=== PATIENT | male | born 1975 | race Caucasian/White ===

== ENCOUNTER 2023-06-16 15:22 | Outpatient (OUT) | payer OTHER, SELFPAY ==
[2023-06-16 16:04] LABS: Alanine Aminotransferase 30 U/L (16-63); Albumin Globulin Ratio 1.2; Albumin Level 3.7 g/dL (3.4-5.0); Alkaline Phosphatase 78 U/L (46-116); Anion Gap 7.7; Aspartate Amino Transferase 15 U/L (15-37); BUN Creatinine Ratio 9.4; Bilirubin Direct 0.1 mg/dL (0.0-0.2); Bilirubin Total 0.7 mg/dL (0.2-1.0); Calcium 8.4 mg/dL (8.5-10.1); Carbon Dioxide 29.2 mmol/L (21.0-32.0); Chloride 106 mmol/L (98-107); Estimated GFR (African America >60 (>=60); Estimated GFR (Non-African Ame 55 (>=60); Globulin 3.1 g/dL; Glucose 91 mg/dL (74-106); Potassium 3.9 mmol/L (3.5-5.1); Sodium 139 mmol/L (136-145); Total Protein 6.8 g/dL (6.4-8.2)
== END 2023-06-16 15:23 | disposition home or self-care (01) ==
LOC: LAB 15:25
PROVIDERS: PCP Nurse Practitioner; Visit Provider Psychiatry & Neurology Neurology
DX: G43.011 Migraine without aura, intractable, with status migrainosus (principal); G62.9 Polyneuropathy, unspecified
CPT/HCPCS: 36415; 80053; 82248

== ENCOUNTER 2023-10-20 10:14 | Outpatient (OUT) | payer OTHER, SELFPAY | END 2023-10-20 10:15 | disposition home or self-care (01) | LOC: LAB 10:15 | PROVIDERS: PCP Nurse Practitioner; Visit Provider Nurse Practitioner | DX: E55.9 Vitamin D deficiency, unspecified (principal) | CPT/HCPCS: 36415; 82306 ==

== ENCOUNTER 2023-10-25 23:04 | Outpatient (OUT) | payer OTHER, SELFPAY ==
--- NOTE | 2023-10-25 | XR_ITS ---
The [address] [address] Patient Name: JOVANA CARRASQUILLO MRN: [id number] date: 1975 Sex: M Assigned Patient Location: [facility] Current Patient Location: Accession/Order Number: [id number] Exam Date: 10/25/2023 23:08 Report Date: 10/26/2023 06:29 At the request of: YAMILETH MCCRACKEN Procedure: XR foot RT min 3V PROCEDURE: XR foot RT min 3V HISTORY: lateral right foot pain since injury one month ago COMPARISON: None. FINDINGS: BONES:Moderate narrowing of the joint space of the first metatarsophalangeal joint. No fracture, dislocation, bone lesion. SOFT TISSUES:No visible soft tissue swelling. EFFUSION:None visible. OTHER: Negative. XR/XR foot RT min 3V IMPRESSION: 1. No acute abnormality findings to account for patient's symptoms. 2. 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 Electronically authenticated by: LEO BOND Date: 10/26/2023 06:29
== END 2023-10-25 23:05 | disposition home or self-care (01) ==
PROVIDERS: PCP Nurse Practitioner; Visit Provider Nurse Practitioner
DX: M79.671 Pain in right foot (principal)
CPT/HCPCS: 73630

== ENCOUNTER 2024-01-17 11:54 | Outpatient (OUT) | payer OTHER, SELFPAY ==
[2024-01-17 17:22] LABS: Prostate Specific Antigen Dx 2.66 ng/mL (<=4.00)
== END 2024-01-17 11:55 | disposition home or self-care (01) ==
LOC: LAB 01-19 11:54
PROVIDERS: PCP Nurse Practitioner; Visit Provider Urology
DX: R97.20 Elevated prostate specific antigen [PSA] (principal)
CPT/HCPCS: 36415; 84153

== ENCOUNTER 2024-04-01 16:37 | Outpatient (OUT) | payer OTHER, SELFPAY ==
[2024-04-01 16:56] LABS: Bilirubin Urine NEGATIVE (NEGATIVE); Blood Urine NEGATIVE (NEGATIVE); Clarity Urine CLEAR (CLEAR); Color Urine LT. YELLOW (YELLOW); Glucose Urine UA NEGATIVE (NEGATIVE); Ketones Urine NEGATIVE (NEGATIVE); Leukocyte Esterase Urine NEGATIVE (NEGATIVE); Nitrite Urine NEGATIVE (NEGATIVE); Protein Urine NEGATIVE (NEG/TRACE); Specific Gravity Urine 1.015 (1.005-1.025); Urobilinogen Urine 0.2 EU/dL (0.2-1.0)
[2024-04-01 16:58] LABS: Urine Microscopic Indicated NO
[2024-04-01 17:05] LABS: Basophils Absolute Auto 0.1 10^3/uL (0.0-0.1); Basophils Percent Auto 1.2 % (0.2-2.0); Eosinophils Absolute Auto 0.2 10^3/uL (0.0-0.7); Eosinophils Percent Auto 3.1 % (0.9-7.0); Hematocrit 47.9 % (42.0-54.0); Immature Granulocytes Abs Auto 0.03 10^3/uL (0.00-0.03); Immature Granulocytes Pct Auto 0.6 % (0.0-0.5); Lymphocytes Absolute Auto 1.7 10^3/uL (1.2-3.8); Lymphocytes Percent Auto 33.3 % (20.5-60.0); Mean Corpuscular HGB Conc 33.4 g/dL (29.9-35.2); Mean Corpuscular Volume 89.9 fL (80.0-94.0); Mean Platelet Volume 11.1 fL (9.5-13.5); Monocytes Absolute Auto 0.4 10^3/uL (0.3-0.8); Monocytes Percent Auto 7.5 % (1.7-12.0); Neutrophils Absolute Auto 2.8 10^3/uL (1.4-6.5); Neutrophils Percent Auto 54.3 % (43.0-75.0); Platelet Count 199 10^3/uL (150-450); Red Blood Count 5.33 10^6/uL (4.70-6.10); Red Cell Distribution Width 12.1 % (11.0-15.0); White Blood Count 5.2 10^3/uL (4.0-11.0)
[2024-04-01 17:33] LABS: Alanine Aminotransferase 21 U/L (16-63); Albumin Globulin Ratio 1.3; Alkaline Phosphatase 83 U/L (46-116); Anion Gap 8.7; Aspartate Amino Transferase 12 U/L (15-37); BUN Creatinine Ratio 8.8; Bilirubin Total 0.9 mg/dL (0.2-1.0); Carbon Dioxide 30.1 mmol/L (21.0-32.0); Chloride 106 mmol/L (98-107); Chol HDL Ratio 2.7; Cholesterol 199 mg/dL (<=200); Estimated GFR (African America >60 (>=60); Estimated GFR (Non-African Ame 55 (>=60); Glucose 102 mg/dL (74-106); HDL Cholesterol 75 mg/dL (40-60); Potassium 3.8 mmol/L (3.5-5.1); Sodium 141 mmol/L (136-145); Triglycerides 56 mg/dL (<=150); VLDL CHOLESTEROL 11.2 mg/dL
== END 2024-04-01 16:38 | disposition home or self-care (01) ==
LOC: LAB 16:37
PROVIDERS: PCP Nurse Practitioner; Visit Provider Nurse Practitioner
DX: Z00.00 Encounter for general adult medical examination without abnormal findings (principal); E55.9 Vitamin D deficiency, unspecified
CPT/HCPCS: 36415; 80053; 80061; 81003; 82306; 85025

== ENCOUNTER 2024-09-11 15:32 | Outpatient (OUT) | payer OTHER, SELFPAY ==
[2024-09-11 15:57] LABS: Anion Gap 12.3; BUN Creatinine Ratio 7.4; Calcium 8.7 mg/dL (8.5-10.1); Carbon Dioxide 29.2 mmol/L (21.0-32.0); Chloride 105 mmol/L (98-107); Estimated GFR (African America >60 (>=60 mL/min/1.73m^2); Estimated GFR (Non-African Ame 55 (>=60 mL/min/1.73m^2); Glucose 123 mg/dL (74-106); Potassium 3.5 mmol/L (3.5-5.1); Sodium 143 mmol/L (136-145)
== END 2024-09-11 15:33 | disposition home or self-care (01) ==
LOC: LAB 15:32
PROVIDERS: PCP Nurse Practitioner; Visit Provider Nurse Practitioner
DX: R79.89 Other specified abnormal findings of blood chemistry (principal)
CPT/HCPCS: 36415; 80048

== ENCOUNTER 2025-07-28 20:20 | Emergency (ER) | payer OTHER, SELFPAY ==
--- OUTSIDE RECORDS SUMMARY | 2025-05-02 08:07 | XMS_ITS | Continuity of Care Document ---
Author Organization [facility] Address [address] [place] [address] Phone Care Team Providers Care Braid Maker Name Role Phone Clint Kong DMD Unavailable Unavailable Allergies, Adverse Reactions, Alerts Substance Reaction Status Criticality latex Active No Information Medications Medication Instructions Dosage Effective Dates (start - stop) Status Comments Topamax 25 mg tablet take 1 tablet by or al route every day 25 MG - Active acetazolamide 250 mg tablet take 1 tablet by oral route 2 times every day 250 MG - Active Tylenol 325 mg tablet take 2 tablet by o ral route every 6 hours as needed 650 MG - Active Vitamin D3 10 mcg (400 unit) capsule - Active ibuprofen 200 mg capsule take 1 capsule by oral route every 6 hours as needed 200 MG - Active Problems Condition Type Effective Dates (start - stop) Clini samantha Status Comments No Known Problems Procedures Procedure Date Bitewings Four Films Prophylaxis Adult Periodic Oral Eval Estab Patient 2024 [employer] [facility] [employer] [facility] [place] Dis Apr Oral Hygiene Instruction Low Risk Moderate Risk Bitewings Four Films Prophylaxis Adult Periodic Oral Eval Estab Patient 2023 Oral Hygiene Instruction Prophylaxis Adult [employer] [facility] [employer] [place] Dis Sep Oral Hygiene Instruction Post Op Visit Dental Inhalation Of Nitrous Oxide Extract; Erupted Th/exposted Rt 023 [employer] [place] Dis Apr Post Op Visit Dental Bitewig-single Film Oral Hygiene Instruction Limited Oral Eval Prophylaxis Adult Oral Hygiene Instruction Oral Hygiene Instruction Resin Composite 3s; Posterior Comp Oral Eval New/estab Patient 2022 Intraoral-complete Series (bw) Panoramic Film Advance Directives Directive Yes / No Effective Date File Name No Information Encounters Encounter Description Practice Location Reason(s) For Visit Diagnoses Date Provider Providers Copied on Encounter [facility], [address] [place] [address], [id number], [place] tel:[phone] [facility] [place] (chief complaint) Body mass index [BMI] 22.0-22.9, adultEncounter for screening for dental disorders Patoefra VERGARA Clint. [address] [place] [address], [id number] , [place]. tel:[phone] [facility], [address] [place] [address], [id number], [place] tel:[phone] [facility] [place] (chief complaint) Encounter for screening for dental disorders Patoefra VERGARA Clint. [address] [place], [place], [id number] , [place]. tel:[phone] [facility], [address] [place] [address], [id number], [place] tel:[phone] [facility] [place] (chief complaint) Body mass index [BMI] 24.0-24.9, adultEncounter for screening for dental disorders Mari Stone. [address] [place] [address], [id number], [place]. tel:[phone] [facility], [address] [place] [address], [id number], [place] tel:[phone] Dental Clinic Post op (chief complaint) Encounter for screening for dental disorders Patoefra URSULA Jaramillo. [address] [place] [address], [id number] , [place]. tel:[phone] [facility], [address] [place], [place], [id number], [place] tel:[phone] Dental Clinic Ext (chief complaint) Encounter for screening for dental disorders [facility]. [address] [place], [address], [place]. tel: [phone] [facility], [address] [place], [place], [id number], [place] tel:[phone] Dental Clinic ext/ consult? (chief complaint) Encounter for screening for dental disorders [facility]. [address] [place] [address], [id number], [place]. tel: [phone] [facility], [address] [place] [address], [id number], [place] tel:[phone] Dental Clinic Dental limited (chief complaint) Encounter for screening for dental disorders Luann Jaramillo. [address] [place], [place], [id number] , [place]. tel: [phone] [facility], [address] [place] [address], [id number], [place] tel:[phone] [facility] [place] (chief complaint) Encounter for screening for dental disorders [facility]. [address] [place] [address], [id number], [place]. tel: [phone] [facility], [address] [place] [address], [id number], [place] tel:[phone] Dental Clinic GAGANDEEP (chief complaint) Encounter for screening for dental disorders [facility]. [address] [place] [address], [id number], [place]. tel:[phone] [facility], [address] [place] [address], [id number], [place] tel:[phone] Dental Clinic dn (chief complaint) Encounter for screening for dental disorders [facility]. [address] [place] [address], [id number], [place]. tel:[phone] Family History Family Member Type Diagnosis Age At Onset No Information Payers Payer name Insurance type Covered democrat ID Dyan falk(juan ramon) Ashleigh [employer] [facility] [id number] Medicaid Wrap - [facility] [id number] Social History Type Description Quantity Date Captured Comments Alcohol Use Details Unknown Caffeine Use Details Unknown Tobacco Use Status Current non-smoker Smoking Status Never smoker Sex Male Sexual Orientation Straight or heterosexual Gender Identity Male Vital Signs Date / Time: Height Weight BMI Pulse Rate Blood Pressure Temperature Respiratory Rate Body Surface Area Head Circumference Head Circ. Percentile Wt./Keshawn. Percentile BMI percentile Pulse Ox Inhaled Ox 1:19 PM 74.00 in 79.379 kg (175.00 lbs) 22.4 7 kg/m eter (2) 67 /min 140/83 mm[Hg] 98.10 F 2.04 meter(2) Chief Complaint And Reason For Visit From encounter dated '05/02/2025 13:07'. PA (chief complaint). Description: PA Reason For Referral Reason For Referral No Information Plan Of Treatment Date Type Action Status Goal FIT-DNA. Due on due Goal PRAPARE ASSESSMENT. Due on A due Goal Lipid panel. Due on 025 due Goal Zoster vaccine (1st). Due on due Goal Depression screening. Due on due Goal Hepatitis C screening. Due o n due Goal Unhealthy drug use screening . Due on due Goal FOBT. Due on due Goal Tdap. Due on due Goal CT-Colonography. Due on due Goal Colonoscopy. Due on due Goal Influenza vaccine. Due on due Goal FIT. Due on due Goal Tdap Vaccine. Due on 2024 due Goal Dietary manageme nt education, guidance, and counseling completed Goal Tdap Vaccine. Due on 2023 due Goal Tdap. Due on due Goal Zoster vaccine (). Due on due Goal CT-Colonography. Due on due Goal Depression screening. Due on due Goal Colonoscopy. Due on due Goal FOBT. Due on due Goal Unhealthy drug use screening . Due on due Goal Influenza vaccine. Due on due Goal FIT. Due on due Goal PRAPARE ASSESSMENT. Due on A due Goal FIT-DNA. Due on due Goal Lipid panel. Due on due Goal Hepatitis C screening. Due o n due Goal Hep A. Due on du e Goal Depression screening. Due on due Goal FIT-DNA. Due on due Goal PRAPARE ASSESSMENT. Due on due Goal Colonoscopy. Due on due Goal CT-Colonography. Due on due Goal FOBT. Due on due Goal Influenza vaccine. Due on due Goal Lipid panel. Due on 024 due Goal Tdap. Due on due Goal Unhealthy drug use screening . Due on due Goal Tdap Vaccine. Due on 2023 due Goal Zoster vaccine (). Due on due Goal FIT. Due on due Goal Hepatitis C screening. Due o n due Goal Dietary manageme nt education, guidance, and counseling completed Goal Depression screening. Due on due Goal Zoster vaccine (). Due on due Goal PRAPARE ASSESSMENT. Due on S due Goal Tdap. Due on due Goal Tdap Vaccine. Due on 2022 due Goal Colonoscopy. Due on due Goal Lipid panel. Due on due Goal FOBT. Due on due Goal Influenza vaccine. Due on p due Goal Tdap. Due on due Goal Depression screening. Due on due Goal Lipid panel. Due on due Goal FOBT. Due on due Goal PRAPARE ASSESSMENT. Due on ep due Goal Tdap Vaccine. Due on 2022 due Goal Colonoscopy. Due on due Goal Influenza vaccine. Due on due Goal Zoster vaccine (). Due on due Goal Zoster vaccine (). Due on due Goal Influenza vaccine. Due on due Goal Depression screening. Due on due Goal Colonoscopy. Due on due Goal FOBT. Due on due Goal Tdap. Due on due Goal Tdap Vaccine. Due on 2022 due Goal Lipid panel. Due on due Goal PRAPARE ASSESSMENT. Due on due Goal Hep A. Due on du e Goal Zoster vaccine (). Due on due Goal PRAPARE ASSESSMENT. Due on due Goal Tdap Vaccine. Due on 2022 due Goal Lipid panel. Due on due Goal Depression screening. Due on due Goal Tdap. Due on due Goal Colonoscopy. Due on due Goal FOBT. Due on due Goal Influenza vaccine. Due on due Goal Zoster vaccine (). Due on due Goal PRAPARE ASSESSMENT. Due on due Goal Colonoscopy. Due on due Goal Tdap Vaccine. Due on 2022 due Goal Tdap. Due on due Goal FOBT. Due on due Goal Lipid panel. Due on due Goal Depression screening. Due on due Goal Influenza vaccine. Due on due Goal Hep A. Due on du e Goal FOBT. Due on due Goal Influenza vaccine. Due on due Goal PRAPARE ASSESSMENT. Due on due Goal Colonoscopy. Due on due Goal Zoster vaccine (). Due on due Goal Tdap Vaccine. Due on 2022 due Goal Tdap. Due on due Goal Depression screening. Due on due Goal Lipid panel. Due on due Goal Lipid panel. Due on due Goal Depression screening. Due on due Goal Tdap. Due on due Goal Tdap Vaccine. Due on 2022 due Goal Zoster vaccine (). Due on due Goal Colonoscopy. Due on due Goal PRAPARE ASSESSMENT. Due on due Goal Influenza vaccine. Due on due Goal FOBT. Due on due Appointment Hung Ca BOOKED History Of Present Illness Encounter Date Complaint History Of Prese nt Illness JACOBO CENTENO JACOBO CENTENO JACOBO CENTENO Post op Post op Ext ext/ consult? Dental limited JACOBO CENTENO GAGNADEEP GAGANDEEP dn dn Functional Status Date Functional Assessmen t No Information Instructions Date Instruction Additional Infor mation Giving encouragement to exercise Related to Body mass index [BMI] 22.0-22.9, adult Dietary management e ducation, guidance, and counseling Related to Body mass index [BMI] 22.0-22.9, adult Giving encouragement to exercise Related to Body mass index [BMI] 24.0-24.9, adult Dietary management e ducation, guidance, and counseling Related to Body mass index [BMI] 24.0-24.9, adult Assessments Type Assessment Date assessment Body mass index [BMI] 22.0-22.9, adult assessment Encounter for screening for dent al disorders Patient Care Teams Name Effective Dates (start - stop) Status Members No Information
[2025-07-28] VITALS (14 sets, daily range): BP systolic 100–132; BP diastolic 64–79; PULSE 61–85; TEMP 36.3; O2SAT 99–100; BMI 21.8
--- OUTSIDE RECORDS SUMMARY | 2025-07-28 15:10 | XMS_ITS | Continuity of Care Document ---
Author Organization [facility] Address [address] [place] [address] Phone Care Team Providers Care Magazine Writer Name Role Phone Pamela Norris FIGURINE MAKER-C Primary Care Provider [phone] Pamela Norris NP-C Attending Provider Care Teams Patient Care Team Team Status: Active Member Role/Relationship Status Dates Pamela Norris NP-C Primary Care Provider Active Visit Care Team Team Status: Inactive Member Role/Relationship Status Dates Pamela Norris FIGURINE MAKER-C Primary Care Provider Active Start: June 23, 2025 End: June 23, 2025Pamela Norris NP-CAttending ProviderActiveStart: June 23, 2025 End: June 23, 2025 Patient Care Team Team Status: Inactive Member Role/Relationship Status Dates Pamela Norris FIGURINE MAKER-C Primary Care Provider Active Start: July 28, 2025 End: July 28, 2025AMISH AminCAttennguyen ProviderActiveStart: July 28, 2025 End: July 28, 2025 Chief Complaint and Reason for Visit Chief Complaint Admit Date 6M June 23, 2025 5:50pm large splinter in right hand July 6:49pm Reason for Visit Admit Date Migraine aura without headache June 23, 2025 5:50pm Vitamin D deficiency June 23 5:50pm Wellness examination June 23 5:50pm Foreign body (FB) in soft tissue Novembe r 2024 6:49pm Vasovagal episode July 28, 2025 6 :49pm Allergies, Adverse Reactions, Alerts Allergen Type Severity Reaction Last Updated Verified Status alfuzosin Allergy Mild Dizziness May 8:23am Yes Active latex Allergy Mild Rash May 8:23am Yes Active grass pollen Allergy Unknown Unknown Reaction May 10, 2021 8:39am Yes Active mold Allergy Unknown Unknown Reaction April 252020 8:39am Yes Active ragweed pollen Allergy Unknown Unknown Reaction Augu st 2020 8:39am Yes Active levonorgestrel-eth inyl estrad Allergy Unknown unknown June 19, 2025 8:23am No Active molds,ragweed,gras s Allergy Unknown Cough June 19, 2025 8:23am No Active Social History Smoking Status Status Start Date End Date Date of Observa tion Never smoked tobacco (finding) April 27, 2023 6:02pm Observation Status Observation Response Date of Response Legal Sex Male (finding) Sex Assigned At BirthMaleApril 1974 Family History Relationship Condition Age at Onset Recorded Date/T rusty father Malignant neoplasm metastatic to lung Unk nown Malignant neoplasm of colonUnknownNeuroendocrine carcinomaUnknownsisterSeizure UnknownfatherMalignant neoplasmUnknownDeceasedUnknown Problems Active Problems Problem Diagnosis/Recorded Date Onset Date Status C omments Fluttering sensation of heart June 19, 2025 8:37am Unknown Active Trigger point of neckSept2024 8:41amUnknownActiveElevated PSA June 19, 2025 8:37amUnknownActiveLower extremity edemaSeptember 2024 8:38amUnknownActiveInsomniaSept2024 8:37amUnknownActiveIIH (idiopathic intracranial hypertension)June 19, 2025 8:37amUnknownActive Vision changesSept2024 8:41amUnknownActiveForeign body (FB) in soft tissueJuly 28, 2025 7:50pmUnknownActiveReactive airway diseaseSept2024 8:38amUnknownActiveMigraine aura without headacheSept2024 8:38amUnknownActiveVitamin deficiencySept2024 8:41amUnknownActive Benign prostatic hyperplasia with urinary obstructionSept2024 8:37am UnknownActiveWellness examinationSeptember 2024 8:41amUnknownActive RhinitisSeptember 2024 8:38amUnknownActiveElevated serum creatinine June 19, 2025 8:37amUnknownActivePolyneuropathySeptember 2024 8:38amUnknownActiveRight foot painSeptember 2024 8:38amUnknownActive Cervical paraspinal muscle spasmSeptember 2024 8:37amUnknownActiveSore in noseSeptember 2024 8:38amUnknownActiveVasovagal episodeNov2024 7:50pmUnknownActivePapilledemaSeptember 2024 8:38amUnknownActiveVitamin D deficiencySept2024 8:41amUnknownActiveInactive/Resolved Problems Problem Diagnosis/Recorded Date Onset Date Status C omments Family history of colon cancer requiring screening colonoscopy May 10, 2021 10:02am Unknown Resolved Proble m List clean-up per request of Phys. EHR Cmte Medications Medication Status Dose Units Route Directions Qty Days Refills S tart Date Stop Date End Date Reason(s) Instructions Adherence Acetazolamide 250 mg tablet Discontinued 250 MG PO Twice daily May 09, 2021 11:00pmSept2024 4:04pm1 tablet in AM; 1/2 tablet in PMMultivitamin OsktlrAgibxa0ELFKZOmcrdEvhwyn 2020 11:00pmUnknown Cetirizine 10 mg rrztosJajzxx03QUMHIgpeq as neededJune 19, 2025 11:00pm UnknownThiamine Hcl (Vitamin B1) 100 mg bmiggiMskszc153XPWIZyfwmQnampdyac 25th, 2025 11:00pmUnknownTopiramate 25 mg ersmndDaqahf59GWNQBsyssnhcj 25th, 2025 11:00pmUnknownMagnesium Oxide 400 mg (241.3 mg magnesium) iglphcAljlpx664IPXG DailySept2024 11:00pmUnknownFluticasone Propionate (Flonase Allergy Relief) 50 mcg/actuation spray,aadjlmrcwoFqddkh2KYTIYSRUHPMRWWHUmyumZrzudaool 25th, 2025 11:00pmadminister into each nostrilUnknownCholecalciferol (Vitamin D3) 50 mcg (2,000 unit) omxsevHinfpofxqaxj5460KIQSXXUtcfeXsaupoyqx 25th, 2025 11:00pmSept2024 5:31pmAscorbic Acid (Vitamin C) 500 mg capsuleActive MG2024 11:00pmUnknownRimegepant (Nurtec Odt) 75 mg tablet,qxbjshtuabvdvgHtemyd92NPDWFzld as neededJune 19, 2025 11:00pm UnknownCholecalciferol (Vitamin D3) 50 mcg (2,000 unit) ilrrwqHninoo4012TNLIJT Hordt075OjwrgyitaJune 23, 2025 5:30pmVitamin D deficiency Vitamin D deficiency, unspecifiedUnknown Immunizations Immunization Event Date Not Given Reason Dose Number Crop Quantitative Geneticist Lot Number Reason(s) Given Vaccine Information Statement (VIS) Detail Administration Location COVID-19 [facility] blinkboxdeangelo (Secure[facility]) December [facility] 08, 2021 Vital Signs Vital Reading Result Reference Range Collection Date/Time Height 74 [in_i] June 23, 2025 4:30qyKcwklq03.11 kgSept2024 4:55pmBody Mhgkduahphb86.3 [degF]97.6-99.0pt2024 4:55pmHeart Rate61 /min 60-100June 23, 2025 4:55pmOxygen saturation by Pulse vhlgyaes92 %95-100 June 23, 2025 4:55pmBP Ywhedvqd372 mm[Hg]100-140Sept2024 4:55pmBP Ttdpcxsvm22 mm[Hg]60-100Sept2024 4:55pmBMI (Body Mass Index)21.8 kg/o4FvjfdijiiJune 23, 2025 4:11yzNghaht00 [in_i]July 28, 2025 6:05fdVsmmdz96.28 kgNov2024 6:55pmBody Rqrtokexlvg91.1 [degF] 97.6-99.0July 28, 2025 6:55pmHeart Rate78 /frf00-639CtqpyggfJuly 28, 2025 6:55pmRespiratory rate18 /ffb99-80BfsohnujJuly 28, 2025 6:55pmOxygen saturation by Pulse %95-100July 28, 2025 6:55pmBP Kxhbyxqg44 mm[Hg]100-140 July 28, 2025 7:38pmBP Mkufmxfxh24 mm[Hg]60-100July 28, 2025 7:38pmBMI (Body Mass Index)21.9 kg/n7RvpiqlciJuly 28, 2025 6:55pm Advance Directives Advance Directive Response Recorded Date/ Time Advance Directives No January 19 9:30am Insurance Providers Guarantor Ashleigh Roland Address [address] [place] [address] [address] [facility] [address]Essdwfj Info.Home Phone: Coverage Status Update:2025 Payer Group Member ID Coverage Type Subscriber Relationship to Subscriber Effective Date Expiration Date [facility] Medicaid Id: [id number] Jordan , D Id: [id number] [address] [place] [address] [address] [facility] [address] Home Phone: Email: [facility]Self[facility] Self-[id number] Jordan , D Id: [id number] [address] [place] [address] [address] [facility] [address] Home Phone: Email: DECLINEDSelf Encounters Encounter Location(s) Arrival/Admit Date Discharge/Departure Date Discharge/Departure Disposition Provider(s) Departed Physician/ Provider Office Visit -[facility] [place] June 23, 2025 5:50pm June 23, 2025 6:33pm Discharged to home care or self care (routine discharge) YANA Amin Departed Physician/ Provider Office Visit -[facility] July 28, 2025 6:49pm July 28, 2025 8:09pm Discharged to home care or self care (routine discharge) YANA Amin Recent Diagnosis Onset Date Admit Date Migraine aura without headache Unknown S rolandteclint 2024 5:50pm Vitamin D deficiency Unknown May 272024 5:50pm Wellness examination Unknown May 272024 5:50pm Foreign body (FB) in soft tissue Unknown July 28, 2025 6:49pm Vasovagal episode Unknown July 28, 2025 6:49pm Assessments Diagnosis Onset Date Resolution Status Admit Date Migraine aura without headache acuteSept2024 5:50pmVitamin D deficiencyacuteSept2024 5:50pmWellness examinationacuteSept2024 5:50pmForeign body (FB) in soft tissueacuteJuly 28, 2025 6:49pmVasovagal episodeacuteJuly 28, 2025 6:49pm Plan of Treatment Author Pamela [facility]2024 7:57pmafter sm splinter piece removed, no other visible FB noted after completion of this removal, pt experienced a vasovagal response: diaphoresis, tunnel vision, pale and diaphoretic. he did pass out for approx 15 seconds, and then awaken dazed, also had episode of dry heaving. denied any chest pain/pressure, remained pale, lowest blood pressure 82/palp. HR lowest was 56. I continued to stay at his side, he was alert and oriented, after approx 20 minutes his blood pressure still remained mid to high 80 range. he did report that he had not eaten all day. I did offer to call squad to take to the Er, however he declined, he did contact his mother around 19:48 to see if she would come and take him to the ER. as of 19:52 he is resting quietly on exam table, is alert, follows commands, skin is pale-pink, warm and dry, he is drinking water no dry heaves, remains alert. Author Pamela [facility]2024 5:39pmrefill vit d Reviewed Ht/Wt/BMI Recommend eye exams yearly Recommend dental exam: twice a year Balance work/leisure activities exercise is recommended most days of the week (appropriate as chronic conditions allow) follow up yearly and prn under care of neurology continue with this Future Tests Future scheduled test information is unavailable Pending Tests Pending diagnostic test information is unavailable Future Visits Future appointment information is unavailable Future Procedures Future procedure information is unavailable Future Medications Future medication information is unavailable Patient Instructions Patient instructions are unavailable
--- OUTSIDE RECORDS SUMMARY | 2025-07-28 20:27 | XMS_ITS | Clinical Summary ---
Author Organization [facility] s tem Address [id number] [address] [place] [address] Care Team Providers Care Chemistry Technician Name Role Phone MyrnaPamela Margy BOWMAN-FLEET TECHNICIAN Primary Care Provider Allergies Active AllergyReactionsCriticalityNoted DateCommentsLevonorgestrel-Ethinyl Axggkk8412/02/20241997AlbiecrhzVtnohivoa89/12/2025 Medications MedicationSigDispense QuantityRefillsLast FilledStart DateEnd DateStatus topiramate (TOPAMAX) 25 mg capsule Take 1 capsule (25 mg total) by mouth every morning before breakfast.Active cholecalciferol, vitamin D3, 2,000 units tablet Take 1 tablet (2,000 Units total) by mouth in the morning.5Active cetirizine (ZyrTEC) 10 mg tablet Take 1 tablet (10 mg total) by mouth in the morning.4Active magnesium oxide (MAGOX) 400 mg tablet 1 tablet (400 mg total) in the morning.5Active rimegepant (NURTEC ODT) 75 mg tablet,disintegrating Dissolve 75 mg on tongue daily as needed.4Active topiramate (TOPAMAX) 50 mg tablet Take 1 tablet (50 mg total) by mouth nightly.Active Active Problems ProblemNoted DateDiagnosed DateBenign prostatic hyperplasia with urinary /10/2025 Overview (02/03/2025): had been on acetazolamide for increased intracranial pressure, now on topamax and wants to try again uroxatral PVR 126 cc ( 40 minutes after voiding ) Dr Brown history cystoscopy January of 2022. Friable prostatic urethra bilobar hypertrophy. Diffuse cystitis started on flomax did not like side effects--he stopped on his own-- had less retrograde ejaculation with Uroxatral ==== 02/03/2025 ==== took Uroxatral for several days. No great benefit with urination but did have some apparent with orthostatic hypotension some tingling. This all resolved after stopping the medication. ==== 12/02/2024 ==== plan as above. He wishes to retry Uroxatral as he is off of the acetazolamide now on Topamax. Assessment & Plan (02/03/2025 3:33 PM EDT): Patient states he does not have any significant lower urinary tract symptoms. Did have a slightly higher PVR. At this point in time he is content with the observation. Does not want to try 5 alpha reductase inhibitor. Will monitor his PVR. Return clinic 9 months check PVR Elevated PSA Overview (02/03/2025): ==== 02/03/2025 ==== PSA is 1.92 in November. Good number ==== 12/02/2024 ==== PSA 1.7-2.66. Most recent PSA have his December 2023. Did have a prostate ultrasound biopsy November 17 benign. MRI PIRADS category 2. Prostate volume 24 cc. [facility] Assessment & Plan (02/03/2025 3:33 PM EDT): PSA 9 months Family History Medical HistoryRelationNameCommentsProstatitisFatherRelationNameStatusComments FatherDeceasedMotherAlive Social History Tobacco UseTypesPacks/DayYears UsedDateSmoking Tobacco: NeverSmokeless Tobacco: Never Tobacco Cessation:Counseling Given: Not Answered Alcohol UseStandard Drinks/WeekCommentsNot Currently0 (1 standard drink = 0.6 oz pure alcohol)Hunger ScreeningAnswerDate RecordedWithin the past 12 months we worried whether our food would run out before we got money to buy more.Never True02/03/2025Within the past 12 months the food we bought just didn't last and we didn't have money to get more.Never True02/03/2025Sex and Gender Information ValueDate RecordedSex Assigned at BirthNot on fileLegal EugSzto71/17/2024 9:05 AM ESTGender IdentityNot on fileSexual OrientationNot on file Last Filed Vital Signs Vital SignReadingTime TakenCommentsBlood Dkhqaxqw962/8402/03/2025 3:20 PM EDT Ublha819702/03/2025 3:20 PM EDTTemperature--Respiratory Rate--Oxygen Saturation-- Inhaled Oxygen Concentration--Kqjrje26.6 kg (180 lb)02/03/2025 3:20 PM EDTHeight 188 cm (6' 2 )02/03/2025 3:20 PM EDTBody Mass Index23.11002/03/2025 3:20 PM EDT Plan of Treatment DateTypeDepartmentCare Team (Latest Contact Info)Ycnynffiwgw80/23/2026 3:45 PM ESTOffice Visit [facility] [address] [place] [address] [place] [address] [place] [address] Xavi Buck MD [address] [place] [address] Health MaintenanceDue DateLast DoneCommentsDepression Djavrtlcz35/12/1985COVID- 19 Vaccine ( season), 06/18/2023, 06/11/2022, Additional history existsInfluenza Eqdwnow93, 06/23/2023, 08/19/2022dult BMI Ezayeekej99Tobacco Zsderklgl62/12/2026 02/03/2025DTaP,Tdap and Td Vaccines (3 - Td or Tdap), 02/20/2013, 01/15/2003Zoster (Shingles) PetqmyqLikfwrmyh31/17/2024, 06/23/2023 Medical Devices Not on file Insurance Care Teams Team MemberRelationshipSpecialtyStart DateEnd Date Pamela Norris, MACHINE CLOTHING REPLACER-FLEET TECHNICIAN PCP - GeneralNurse Practitioner12/04/24
--- OUTSIDE RECORDS SUMMARY | 2025-07-28 20:27 | XMS_ITS | Encounter Summary ---
Author Organization [facility] Address [address] [facility] [place] [address] Care Team Providers Care Dental Lab Technician Name Role Phone Pamela Norris BOTTLE PACKING MACHINE CLEANER Unavailable [phone] Nicholas Clark MD Primary Care Provider [phone] Nicholas Clark MD Primary Care Provider [phone] Pamela Norris BOTTLE PACKING MACHINE CLEANER Unavailable [phone] Pamela Norris NP Unavailable [phone] Encounter Details DateTypeDepartmentCare Team (Latest Contact Info)Ebktekdnnus16/01/2024Clinisync Result Encounter [facility] Unsolicited Pamela Norris, BOTTLE PACKING MACHINE CLEANER [address] [place] [address] Social History Tobacco UseTypesPacks/DayYears UsedDateSmoking Tobacco: NeverSmokeless Tobacco: NeverAlcohol UseStandard Drinks/WeekCommentsNot Currently0 (1 standard drink = 0.6 oz pure alcohol)holiday get togethersSex and Gender InformationValueDate RecordedSex Assigned at BirthNot on fileLegal KlwQjun6512/07/2022 8:14 PM EDT Gender IdentityNot on fileSexual OrientationNot on filedocumented as of this encounter Plan of Treatment DateTypeDepartmentCare Team (Latest Contact Info)Ngufuszyixi35/01/2025 3:40 PM ESTOffice Visit [facility] [place] [facility] [address] [facility] [address] [place] [address] Kurt Espana MD [address] [place] [address] documented as of this encounter Procedures Procedure NamePriorityDate/TimeAssociated DiagnosisCommentsXR FOOT RT MIN 3V 10/26/2023 6:29 AM EST documented in this encounter Results * XR FOOT RT MIN 3V (10/26/2023 6:29 AM EST)Anatomical RegionLateralityModality OtherSpecimen (Source)Anatomical Location / LateralityCollection Method / VolumeCollection TimeReceived Time10/26/2023 6:29 AM EST Narrative 10/26/2023 6:31 AM EST [facility] ?[address] ? [place] [address] ?XRay Report ? Signed ? Patient: JOVANA CA ?MR#: [id number] ?? : 1975 ?Acct:[id number] ?? Age/Sex: 48 / M ?ADM Date: 10/25/23 ?? Loc: RAD ? Attending Dr: Pamela Norris BOTTLE PACKING MACHINE CLEANER ? Ordering Physician: Pamela Norris NP ?? Date of Service: 10/25/23 ?? Procedure(s): XR foot RT min 3V ?? Accession Number(s): [id number] ? cc: Pamela Norris NP ? [facility] ? [address] [facility] ? [place] [address] ? Patient Name: ?? JOVANA CA ? MRN: [facility]:[id number] ? date: 1975 ?Sex: M ?? Assigned Patient Location: RAD ?? Current Patient Location: ? Accession/Order Number: [id number] ?? Exam Date: 10/25/2023 ??23:08 ?Report Date: 10/26/2023 ??06:29 ? At the request of: ?? PAMELA NORRIS ? Procedure: ??XR foot RT min 3V ? PROCEDURE: XR foot RT min 3V ? HISTORY: lateral right foot pain since injury one month ago ? COMPARISON: None. ? FINDINGS: ?? BONES:Moderate narrowing of the joint space of the first metatarsophalangeal ?? joint. No fracture, dislocation, bone lesion. ?? SOFT TISSUES:No visible soft tissue swelling. ?? EFFUSION:None visible. ?? OTHER: Negative. ? XR/XR foot RT min 3V ?? IMPRESSION: ? 1. No acute abnormality findings to account for patient's symptoms. ?? 2. 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 joint. ? Electronically authenticated by: LEO ??RONDA ?? Date: 10/26/2023 ??06:29 ? Dictated By: ?Leo Knowles M.D. ? Signed By: ?10/26/23630 ? DD/ 0629 ? TD/TT: ? Printer Floor Covering Assistant: Procedure Note Radiology, Radiologist, - 10/30/2023 [place] [address] XRay Report Signed Patient: JOVANA CA DMR#: [id number] : 1975Acct:[id number] Age/Sex: 48 / MADM Date: 10/25/23 Loc: [facility] Attending Dr: Pamela Norris NP Ordering Physician: Pamela Norris NP Date of Service: 10/25/23 Procedure(s): XR foot RT min 3V Accession Number(s): [id number] cc: Pamela Norris NP [facility] [place] [id number] Patient Name: JOVANA CA MRN: [id number] date: 1975 Sex: M Assigned Patient Location: [facility] Current Patient Location: Accession/Order Number: [id number] Exam Date: 10/25/2023 23:08 Report Date: 10/26/2023 06:29 At the request of: PAMELA NORRIS Procedure: XR foot RT min 3V PROCEDURE: XR foot RT min 3V HISTORY: lateral right foot pain since injury one month ago COMPARISON: None. FINDINGS: BONES:Moderate narrowing of the joint space of the firstmetatarsophalangeal joint. No fracture, dislocation, bone lesion. SOFT TISSUES:No visible soft tissue swelling. EFFUSION:None visible. OTHER: Negative. XR/XR foot RT min 3V IMPRESSION: 1. No acute abnormality findings to account for patient's symptoms. 2. 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 Electronically authenticated by: LEO KNOWLES Date: 10/26/2023 06:29 Dictated By: Leo Knowles M.D. Signed By:10/26/23630 DD/ 8 TD/TT: Printer Floor Covering Assistant: Authorizing ProviderResult TypeResult StatusLisa [facility] NPCLINISYNC IMAGING Final Result documented in this encounter Visit Diagnoses Not on filedocumented in this encounter Care Teams Team MemberRelationshipSpecialtyStart DateEnd Date Nicholas Clark MD PCP - [facility] Nicholas Clark MD PCP - [facility]03/25/24 Pamela Norris NP [address] [place] [address] PCP - [facility]09/25/24 Pamela Norris NP [facility]08/02/23 Pamela Norris NP [facility]er[facility]03/25/24documented as of this encounter
--- OUTSIDE RECORDS SUMMARY | 2025-07-28 20:27 | XMS_ITS | Clinical Summary ---
Author Organization [facility] Address [address] [place] [address] Care Team Providers Care Hone Operator Name Role Phone Pamela Norris NP Unavailable [phone] Nicholas Clark MD Primary Care Provider [phone] Pamela Norris ANIMAL SHELTER WORKER Unavailable [phone] Pamela Norris NP Unavailable [phone] Allergies Active AllergyReactionsCriticalityNoted DffbSfdprdwmMrebwlciaHpgspmkaq30/12/2025 XtaceUwxdKun09/16/2023Levonorgestrel-Ethinyl Wfcduw8912/02/2024Mixed GrassesCough Raqzwl4108/10/2023 Lawn grass Mixed PkorqgbDolqgXjbrxh72/16/2023Molds & AtewlGwvskInzufh00/16/2023 Mucus, cough, sneezing, runny nose Medications MedicationSigDispense QuantityRefillsLast FilledStart DateEnd DateStatus Ascorbic Acid (VITAMIN C ER PO) Vitamin CActive acetaminophen (Tylenol) 325 MG tablet Take 325 mg by mouth if needed for mild pain.Active ibuprofen 200 MG tablet Take 200 mg by mouth every 6 (six) hours if needed for mild pain.Active multivitamin (Theragran) tablet Take 1 tablet by mouth in the morning.Active Rimegepant Sulfate (Nurtec) 75 MG tablet dispersible Indications:Migraine without aura, intractable, with status migrainosusTake 75 mg by mouth as needed at bedtime (prn migraine MINER) 16 tablet ctive thiamine (Vitamin B-1) 100 MG tablet Indications:Migraine without aura, intractable, with status migrainosusTAKE 1 TABLET BY MOUTH IN THE MORNING 30 tablet ctive cetirizine (ZyrTEC) 10 MG tablet Indications:Rhinitis, unspecified typeTake 1 tablet (10 mg) by mouth Daily 30 tablet ctive fluticasone (Flonase) 50 MCG/ACT nasal spray Indications:Rhinitis, unspecified typeAdminister 2 sprays into each nostril Daily Shake gently. Before first use, prime pump. After use, clean tip and replace cap. 16 g ctive topiramate (Topamax) 25 MG tablet Indications:Benign prostatic hyperplasia with incomplete bladder emptyingTake 1 tablet (25 mg) by mouth Daily AND 2 tablets (50 mg) at bedtime. 270 tablet /ctive magnesium oxide (Mag-Ox) 400 (240 Mg) MG tablet Indications:Migraine without aura, intractable, with status migrainosusTAKE 1 TABLET BY MOUTH IN THE MORNING 30 tablet 5Active Active Problems ProblemNoted DateDiagnosed DateElevated PSA12/09/2024 Overview (12/09/2024): ==== 12/02/2024 ==== PSA 1.7-2.66. Most recent PSA have his December 2023. Did have a prostate ultrasound biopsy November 17 benign. MRI PIRADS category 2. Prostate volume 24 cc. [facility] Benign prostatic hyperplasia with urinary gajehtnyihi22/10/2025 Overview (12/16/2024): had been on acetazolamide for increased intracranial pressure, now on topamax and wants to try again uroxatral PVR 126 cc ( 40 minutes after voiding ) Dr Brown history cystoscopy January of 2022. Friable prostatic urethra bilobar hypertrophy. Diffuse cystitis started on flomax did not like side effects--he stopped on his own-- had less retrograde ejaculation with Uroxatral ==== 12/02/2024 ==== plan as above. He wishes to retry Uroxatral as he is off of the acetazolamide now on Topamax. Assessment & Plan (12/16/2024 5:44 PM EDT): Under the care of urology Not currently on meds Fu in 5/25 with Buck Sore in nose11/28/2024 Assessment & Plan (12/16/2024 5:19 PM EDT): Has resolved Assessment & Plan (11/28/2024 1:35 PM EST): Apply atb ointment TID for 10 days Fu if not better Limit attempting to pick at it If worsening sxs contact office or go to ER Vision ldpwbei5611/28/2024 Assessment & Plan (11/28/2024 1:34 PM EST): No acute findings on today exam Has eye appt tomorrow Oiatryhq91/16/2024 Assessment & Plan (09/09/2024 8:00 PM EST): Cont cetirizine, will trial add flonase nasal spray, if not better contact office I believe this cough is related to PND, which is not infectious etiology Elevated serum qwzvskpegl84/09/2024 Assessment & Plan (09/09/2024 8:01 PM EST): Did not get labs that were ordered in March 2024, reprinted lab sheet and instructed to get done Wellness uymgvdkwmpu39/01/2024 Assessment & Plan (03/25/2024 3:58 PM EDT): Reviewed Ht/Wt/BMI Recommend eye exam yearly Recommend dental exams twice a year Balance work/leisure activities Exercises is recommended most days of the week (appropriate as chronic conditions allow) Follow up yearly and prn Right foot pain10/25/2023 Assessment & Plan (10/25/2023 2:36 PM EST): Check xray OTC NSAID, ice, if not better in 7 days contact office consider PT Pt will call office Vitamin D wewtlypmce31/16/2024 Assessment & Plan (03/25/2024 3:59 PM EDT): Check labs Assessment & Plan (10/25/2023 2:37 PM EST): Level is good Vlfyoxxc55/04/2023Lower extremity edema08/28/2023Reactive airway disease 08/28/2023Fluttering sensation of heart08/28/2023 Assessment & Plan (10/25/2023 2:37 PM EST): No acute findings, had holter last year Will monitor and pt to let me know if freq or intensity changes ?/anxiety IIH (idiopathic intracranial hypertension)04/17/2023 Assessment & Plan (08/28/2023 3:54 PM EST): MINER's are better continue with neurology and med management Fu as per them Cervical paraspinal muscle spasm04/17/2023 Assessment & Plan (08/28/2023 4:00 PM EST): Ice 3-4 times daily, stretching Hand out given Fu if not better Migraine aura without hmpveyga33/24/2023 Assessment & Plan (12/16/2024 7:42 AM EDT): Under the care of neurology Magnesium, and topamax, nurtec Vefmbiijkvr30/24/2023 Assessment & Plan (12/16/2024 5:44 PM EDT): Is under the care of neurology for this Is taking diamox Getting updated MRI brain Assessment & Plan (11/28/2024 1:34 PM EST): Vision change right eye may be related to dose of diamox Zvvaxppyfvxail09/24/2023Trigger point of neck04/17/2023 Resolved Problems ProblemNoted DateDiagnosed DateResolved RfvkICRWT08 Assessment & Plan (06/24/2024 5:13 PM EDT): Add decadron Cefdinir, and cough meds Fluids, rest, fu if not better Chest is clear, I do not feel that at this time chest xray is warrented Assessment & Plan (06/13/2024 1:48 PM EDT): Will treat for presumed covid Will treat with paxlovid, fluids rest, to the er if resp distress Work note given Fu if worsening Chronic kidney disease, stage III (moderate)enign prostatic hyperplasia with incomplete bladder hgwicvag73 Assessment & Plan (09/09/2024 8:00 PM EST): Will refer to Dr Buck in [place] Assessment & Plan (03/25/2024 3:59 PM EDT): Recommend all urology questions go through Urology Migraine without aura, intractable, with status ifnvaihxmkr73 Assessment & Plan (03/25/2024 3:59 PM EDT): Continue with Neurology for treatment of symptoms Skin sensation ssjrfhvrcwu62 Encounters DateTypeDepartmentCare KleyHnrfhggauzf69/29/2025Refill [facility] [address] [address] Kurt Espana MD Migraine without aura, intractable, with status migrainosus (Primary Dx) 05/19/2025 3:30 PM EDTOffice Visit [facility] [address] [facility] [address] [place] [address] Kurt Espana MD Benign prostatic hyperplasia with incomplete bladder emptying (Primary Dx); Migraine without aura, intractable, with status migrainosus ; Polyneuropathy; Benign intracranial hypertension; Low serum vitamin D005/19/2025amboo flowsheet [facility] [address] [place] [address] Kurt sEpana MD 05/19/20254396Vtndxx48/18/2025Orders Only [facility] [address] [place] [address] Kurt Espana MD IIH (idiopathic intracranial hypertension) (Primary Dx)05/12/2025Telephone [facility] [address] [place] [address] Kurt Espana MD 05/12/2025Telephone [facility] [address] [facility] [place] [address] Pamela Norris, SOPHIA from Last 3 Months Immunizations ImmunizationAdministration DatesNext VwdPQH39HPV 9-Jxzldw1311/10/2022, 05/12/2022,03/10/2022Hep A, Umjicgtfmta01/27/2003,02/20/2002Hep B, adult 07/17/2002,03/27/2002,02/20/2002IPV01/23/2003Influenza, Lfmziuijpzp09/20/2024 Influenza, injectable, MDCK, preservative free, zzdnatrqhrfl88/25/2022Influenza, injectable, quadrivalent, preservative free06/23/2023MMR01/08/2003Meningococcal GRMW738Pfizer Cerda Cap SARS-CoV-2 Teqliebsguo17/30/2022fizer Purple Cap SARS-CoV-2 Srjybubsgsj76/15/2021,01/08/2021,1Pneumococcal Conjugate PCV 2040BXEC-NGM-3 (COVID-19) vaccine, mRNA, spike protein, LNP, PF, 50 mcg/0.5 mL07/14/20243139PJWE-FXK-6 (COVID-19) vaccine, mRNA, spike protein, LNP, PF, shelia-sucrose, 30 mcg/0.3 mL06/18/20234500AMRL-QGW-6 (COVID-19) vaccine, mRNA, spike protein, LNP, bivalent, preservative free, 30 mcg/0.3 mLdose, shelia-sucrose avnsxvtxkxd98/17/2022Td (adult), yfdxfxiqosy34/23/5892Tbws57/29/2013Typhoid, ViCPs01/08/2003Zoster, Xaospeduigz68/17/2024,06/23/2023 Family History Medical HistoryRelationNameCommentsCancerFatherHypertensionFatherRelationName StatusCommentsFatherDeceasedMotherAlive Social History Tobacco UseTypesPacks/DayYears UsedDateSmoking Tobacco: NeverSmokeless Tobacco: Never Tobacco Cessation:Counseling Given: No Alcohol UseStandard Drinks/WeekCommentsNot Currently0 (1 standard drink = 0.6 oz pure alcohol)holiday get togethersSex and Gender InformationValueDate Recorded Sex Assigned at BirthNot on fileLegal KyuOwok3812/07/2022 8:14 PM EDTGender IdentityNot on fileSexual OrientationNot on file Last Filed Vital Signs Vital SignReadingTime TakenCommentsBlood Axujnjby862/6808 3:53 PM EDT Zdeur955912/16/2024 5:09 PM IHRRipkmdktzpv43.9 ??C (98.5 ??F)12/16/2024 5:09 PM EDTRespiratory Xfje339112/16/2024 5:09 PM EDTOxygen Vvawbfjcbt54%12/16/2024 5:09 PM EDTInhaled Oxygen Concentration--Hxzidk13 kg (172 lb)05/19/2025 3:53 PM EDT Qxqegr244.2 cm (6' 2.5 )05/19/2025 3:53 PM EDTBody Mass Index21.7905/19/2025 3:53 PM EDT Plan of Treatment DateTypeDepartmentCare Team (Latest Contact Info)Yxghimauast43/01/2025 3:40 PM ESTOffice Visit [facility] [address] [address] [place] [address] Kurt Espana MD [address] [facility] [address] [facility] [place] [address] Health MaintenanceDue DateLast DoneCommentsCT Uzirbswokhhc1973FIT-DNA 1973FIT1973FOBT1975 1914Kmupiybqfvess1973IPV Vaccines (2 of 3 - Adult catch-up series)COVID-19 Vaccine ( season)509/, 01/22/2022, 07/09/2021, Additional history exists Influenza Vaccine (#1)/, 06/23/2023, 2Colonoscopy /1Colorectal Cancer Mxbnlplgo08/16/2026DTaP/Tdap/Td Vaccines (4 - Td or Tdap), 02/20/2013, 01/15/2003Hepatitis B Vaccines Vjsoioxax02/23/2002, 03/27/2002, 02/20/2002Hepatitis A VaccinesAged Out 10/21/2002, 02/20/2002No longer eligible based on patient's age to complete this topicMMR ArjxmsoxCdtokuxms02/16/2003Meningococcal VaccineAged Out02/10/2003No longer eligible based on patient's age to complete this topicHPV VaccinesAged Out11/10/2022, 05/12/2022, 03/10/2022No longer eligible based on patient's age to complete this topicPneumococcal Vaccine: Pediatrics (0 to 5 Years) and At- Risk Patients (6 to 64 Years)Aged Out11/19/2022No longer eligible based on patient's age to complete this topicHIB VaccinesAged OutNo longer eligible based on patient's age to complete this topicMeningococcal B VaccineAged OutNo longer eligible based on patient's age to complete this topicRotavirus VaccinesAged Out No longer eligible based on patient's age to complete this topic Procedures Procedure NamePriorityDate/TimeAssociated DiagnosisCommentsCBC (INCLUDES DIFF/PLT)Jgcwauv4505/19/2025 5:29 PM EDT Benign prostatic hyperplasia with incomplete bladder emptying Migraine without aura, intractable, with status migrainosus Polyneuropathy Benign intracranial hypertension COMPREHENSIVE METABOLIC CRIEEZjwnwzi06/25/2025 5:29 PM EDT Migraine without aura, intractable, with status migrainosus Polyneuropathy Benign intracranial hypertension VITAMIN D 1,25 AXMGQKUOVHjgtmiu17/25/2025 5:28 PM EDT Low serum vitamin D from Last 3 Months Results * CBC and differential (05/19/2025 5:29 PM EDT)ComponentValueRef RangeTest MethodAnalysis TimePerformed AtPathologist SignatureWBC4.93.4 - 10.8 x10E3/uL LABCORPRBC5.394.14 - 5.80 x10E6/pXPPMTBHIDbk58.013.0 - 17.7 g/pCMYPIZEYYck10.8 37.5 - 51.0 %GZUASSRBOO8489 - 97 mENLHDXHNGIV69.726.6 - 33.0 lsHBNPCVLWZUX10.1 31.5 - 35.7 g/sMHBKFLIEVTC63.211.6 - 15.4 %GXOLKTKKucbyxksn689246 - 450 x10E3/bWSZEGCEBFsfxbtrpgro81Sxs Estab. %LSQYHTCRyodqo46Xnq Estab. %[facility] Ojphnowhh9Bfq Estab. %EARLILUHgt8Xgv Estab. %AFKAVKEBlpul6Ppw Estab. %[facility] Neutrophils Abs2.41.4 - 7.0 x10E3/uLLABCORPLymphs Abs1.90.7 - 3.1 x10E3/uL LABCORPMonocytesAbs0.40.1 - 0.9 x10E3/uLLABCORPEos Abs0.20.0 - 0.4 x10E3/uL [facility]ABCORPBaso Abs0.10.0 - 0.2 x10E3/uLLABCORPImmature Ekbpjblvinle1Hrk Estab. % LABCORPImmature Grans Abs0.00.0 - 0.1 x10E3/uLLABCORPSpecimen (Source) Anatomical Location / LateralityCollection Method / VolumeCollection Time Received TimeBloodVenous blood specimen / Qkvkloe9905/19/2025 5:29 PM EDT 05/19/2025 Narrative [facility] - 05/20/2025 6:07 AM EDT Performed at: 01 - [address], [place], [place] ??[id number] Observer Electrical Prospecting: José Miguel Rodriguez PhD, Phone: ??[phone] Authorizing ProviderResult TypeResult StatusKurt ORTEGA BLOOD ORDERABLESFinal ResultPerforming OrganizationAddressCity/State/ZIP CodePhone Number [facility] * (ABNORMAL) Comprehensive metabolic panel (05/19/2025 5:29 PM EDT)Component ValueRef RangeTest MethodAnalysis TimePerformed AtPathologist SignatureGlucose 8670 - 99 mg/yGHRVKKOVOUO546 - 24 mg/dLLABCORPCreat1.230.76 - 1.27 mg/dL MPMNQMVLWDO82>59 mL/min/1.73LABC[facility]PBUN/Creat Ratio99 - 60DYXVRZJLhmapw154432 - 144 mmol/[facility]ABC[facility]PPotassium4.43.5 - 5.2 mmol/LCZUGBGETxfiwabl579(H)96 - 106 mmol/LLABCORPCarbon Jflejmw83(L)20 - 29 mmol/LLABCORPCalcium9.68.7 - 10.2 mg/dLLABCORPProtein Total6.66.0 - 8.5 g/dLLABCORPAlbumin4.63.8 - 4.9 g/dL [facility]ABCORPGlobulin Total2.01.5 - 4.5 g/dLLABCORPBili Total0.60.0 - 1.2 mg/dL LABCORPAlk Izgftehwtpr9980 - 121 IU/TAQDMNEVGBY062 - 40 IU/BIERZOBTBXX338 - 44 IU/[facility]PSpecimen (Source)Anatomical Location / LateralityCollection Method / VolumeCollection TimeReceived TimeBloodVenous blood specimen / Unknown 05/19/2025 5:29 PM EDT05/19/2025 Narrative [facility] - 05/20/2025 6:07 AM EDT Performed at: 01 - [facility] [address] ??[id number] Observer Electrical Prospecting: José Miguel Rodriguez PhD, Phone: ??[phone] Authorizing ProviderResult TypeResult StatusKurt Espana MDRAWLINS COUNTY [facility] BLOOD ORDERABLESFinal ResultPerforming OrganizationAddressCity/State/ZIP CodePhone Number [facility] * Vitamin D 1,25 dihydroxy (05/19/2025 5:28 PM EDT)ComponentValueRef RangeTest MethodAnalysis TimePerformed AtPathologist SignatureVITAMIN D, 1,25 ([place])2, TOTAL52.924.8 - 81.5 pg/mLLABCORPSpecimen (Source)Anatomical Location / LateralityCollection Method / VolumeCollection TimeReceived TimeBloodVenous blood specimen / Wcivtue6805/19/2025 5:28 PM EDT05/19/2025 Narrative [facility] - 05/21/2025 1:07 PM EDT Performed at: 01 - [facility] [address] ??[id number] Observer Electrical Prospecting: Cindy Espinosa MD, Phone: ??[phone] Authorizing ProviderResult TypeResult StatusBretami Espana MDLAB BLOOD ORDERABLESFinal ResultPerforming OrganizationAddressCity/State/ZIP CodePhone Number [facility] from Last 3 Months Insurance * Guarantor: Hung CaAccount TypeRelation to PatientDate of BirthPhone Billing AddressPersonal/YggfyrQknw1975 [address] [address] Care Teams Team MemberRelationshipSpecialtyStart DateEnd Nicholas Clark MD PCP - [facility]Fa[facility]03/25/24 Pamela Norris NP [address] [place] [address] PCP - [facility]09/25/24 Pamela Norris NP Nurse PractitionerFamily Dstzdgnn54/8/23 Pamela Norris NP Nurse PractitionerNantucket Cottage [facility]03/25/24
--- NOTE | 2025-07-28 20:30 | ECG_ITS ---
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 Measurements Intervals Minter Rate: 61 P: 71 OR: 212 QRS: 81 QRSD: 98 T: 56 QT: 412 QTc: 414 Interpretive Statements 1100 Sinus rhythm 2231 First degree AV block 9150 abnormal ECG Compared to ECG 10/17/2022 15:06:52 No significant changes Electronically Signed On 07-29-2025 6:33:11 EST by OMAIRA CURIEL M.D.
--- NOTE | 2025-07-28 20:43 | ED_ITS ---
HPI - Syncope General Chief Complaint: Syncope Stated Complaint: Nausea Time Seen by Provider: 07/28/25 20:27 Source: patient, family and caregiver Mode of arrival: walk-in Limitations: no limitations History of Present Illness HPI narrative: past history of becoming nauseous and nearly passing out during medical procedures. Described requiring an injection in his eye and nearly passing out in the past. Today he had a splinter removed from his hand at urgent care. He became nauseous and passed out for about 10-15 seconds. when he woke up he was still nauseated and also hypotensive with systolic BP 80s. He was slow to improve and advised to come to the ER. He arrives here and still has some nausea. His BP has improved. Denies chest pain or dyspnea. No associated abdominal pain Related Data Home Medications ?Medication ?Instructions ?Recorded ?Confirmed cholecalciferol (vitamin D3) 50 50 mcg PO DAILY 07/28/25 mcg (2,000 unit) tablet magnesium oxide 400 mg (241.3 mg 400 mg PO DAILY 07/2807/28/25 magnesium) tablet topiramate 25 mg tablet 25 mg PO Q12H 07/28/2507/28 Allergies Allergy/AdvReac Type Severity Reaction Status Date / Time No Known Drug Allergies Allergy Verified 07/28/25 20:29 Review of Systems ROS Status of ROS 10 or more systems reviewed and unremark able except as noted in history and below PFSH PFSH Social History Little interest or pleasure in doing things: not at all Feeling down, depressed, or hopeless: not at all Exam Constitutional Vital Signs, click to edit/add: Last Vital Signs Temp 97.4 F L 07/28/25 20:24 Pulse 77 07/28/25 22:42 Resp 15 07/28/25 20:30 BP 117/71 07/29/25 00:00 Pulse Ox 100 07/28/25 22:34 O2 Del Method Room Air 07/28/25 20:24 Common normals: no apparent distress, average body habitus, oriented x3, no limitations, healthy appearing, alert and well nourished [facility] Common normals: normocephalic and head/scalp atraumatic Eye Common normals: EOMs intact bilaterally and conjunctivae normal Respiratory Common normals: normal respiratory effort, no retractions, no use of accessory muscles and clear to auscultation bilaterally Cardio Common normals: regular rate, regular rhythm, S1 normal heart sound and S2 normal heart sound Extremity Common normals: normal to inspection and full ROM Neuro Common normals: oriented x3, CN's II-XII intact bilaterally, moves all extremities and no focal motor deficits Psych Appearance: grossly normal Course Vital Signs Vital signs: Vital Signs Temperature 97.4 F L 07/28/25 20:24 Pulse Rate 69 07/28/25 20:24 Respiratory Rate 16 07/28/25 20:24 Blood Pressure 123/64 07/28/25 20:24 Pulse Oximetry 100 07/28/25 20:24 Oxygen Delivery Method Room Air 07/28/25 20:24 Temperature 97.4 F L 07/28/25 20:24 Pulse Rate 77 07/28/25 22:42 Respiratory Rate 15 07/28/25 20:30 Blood Pressure 117/71 07/29/25 00:00 Pulse Oximetry 100 07/28/25 22:34 Oxygen Delivery Method Room Air 07/28/25 20:24 MDM - Syncope MDM Narrative Medical decision making narrative: patient presents with vasovagal syncope. splinter removed from his hands at urgent care and he became nauseous, hypotensive and passed out for 10-15 seconds. Arrived here via private car. BP normal on arrival. sill mild nausea. No chest pain. EKG WNL. patient hydrated with normal saline and labs normal including troponin. Patient is feeling better and discharged home Lab Data Labs: Lab Results 07/28/25 Range/Units 20:44 WBC 7.6 (4.0-11.0) 10^3/uL RBC 5.31 (4.70-6.10) 10^6/uL Hgb 16.3 (14.0-18.0) g/dL Hct 48.0 (42.0-54.0) % MCV 90.4 (80.0-94.0) fL MCH 30.7 (25.9-34.0) pg MCHC 34.0 (29.9-35.2) g/dL RDW 11.9 (11.0-15.0) % Plt Count 208 (150-450) 10^3/uL MPV 10.7 (9.5-13.5) fL Neut % (Auto) 72.8 (43.0-75.0) % Lymph % (Auto) 18.3 L (20.5-60.0) % Latimer % (Auto) 6.2 (1.7-12.0) % Eos % (Auto) 1.3 (0.9-7.0) % Baso % (Auto) 0.7 (0.2-2.0) % Neut # (Auto) 5.6 (1.4-6.5) 10^3/uL Lymph # (Auto) 1.4 (1.2-3.8) 10^3/uL Latimer # (Auto) 0.5 (0.3-0.8) 10^3/uL Eos # (Auto) 0.1 (0.0-0.7) 10^3/uL Baso # (Auto) 0.1 (0.0-0.1) 10^3/uL Abs Immat Gran (auto) 0.05 H (0.00-0.03) 10^3/uL Imm/Tot Granulo (auto) 0.7 H (0.0-0.5) % Sodium 140 (136-145) mmol/L Potassium 3.9 (3.5-5.1) mmol/L Chloride 108 H (98-107) mmol/L Carbon Dioxide 25.1 (21.0-32.0) mmol/L Anion Gap 10.8 BUN 14.0 (7.0-18.0) mg/dL Creatinine 1.27 (0.70-1.30) mg/dL Est GFR ( Amer) >60 (>=60 mL/min/1.73m^2) Est GFR (Non-Af Amer) 60 (>=60 mL/min/1.73m^2) BUN/Creatinine Ratio 11.0 Glucose 128 H (74-106) mg/dL Calcium 8.8 (8.5-10.1) mg/dL Troponin I High Sens <4.0 L (4.0-76.1) pg/mL Discharge Plan Discharge Chief Complaint: Syncope Clinical Impression: Vasovagal syncope Patient Disposition: Home, Self-Care Prescriptions / Home Meds: No Action topiramate 25 mg tablet 25 mg PO Q12H magnesium oxide 400 mg (241.3 mg magnesium) tablet 400 mg PO DAILY cholecalciferol (vitamin D3) 50 mcg (2,000 unit) tablet 50 mcg PO DAILY Print Language: [place] Citizen Instructions: Syncope (ED) Additional Instructions: drink plenty of fluids . follow up with your doctor this week for recheck Referrals: Pamela Norris NP [Primary Care Provider, Family Practice] - 1 week
[2025-07-28] MEDS: 0.9 % SODIUM CHLORIDE 1,000 ML 999 ML IV ×2 (20:58→22:54)
[2025-07-28 21:12] LABS: Hematocrit 48.0 % (42.0-54.0); Hemoglobin 16.3 g/dL (14.0-18.0); Immature Granulocytes Abs Auto 0.05 10^3/uL (0.00-0.03); Immature Granulocytes Pct Auto 0.7 % (0.0-0.5); Lymphocytes Absolute Auto 1.4 10^3/uL (1.2-3.8); Mean Corpuscular HGB Conc 34.0 g/dL (29.9-35.2); Mean Corpuscular Hemoglobin 30.7 pg (25.9-34.0); Mean Corpuscular Volume 90.4 fL (80.0-94.0); Platelet Count 208 10^3/uL (150-450); Red Blood Count 5.31 10^6/uL (4.70-6.10); White Blood Count 7.6 10^3/uL (4.0-11.0)
[2025-07-28 21:32] LABS: Anion Gap 10.8; Blood Urea Nitrogen 14.0 mg/dL (7.0-18.0); Calcium 8.8 mg/dL (8.5-10.1); Carbon Dioxide 25.1 mmol/L (21.0-32.0); Chloride 108 mmol/L (98-107); Estimated GFR (African America >60 (>=60 mL/min/1.73m^2); Estimated GFR (Non-African Ame 60 (>=60 mL/min/1.73m^2); Glucose 128 mg/dL (74-106); Potassium 3.9 mmol/L (3.5-5.1); Sodium 140 mmol/L (136-145)
[2025-07-28] MEDS: DIPHENHYDRAMINE HCL 50 MG/ML VIAL IVP (22:54)
[2025-07-29] VITALS: BP 117/71
== END 2025-07-29 00:33 | disposition home or self-care (01) ==
PROVIDERS: Emergency Provider Internal Medicine; PCP Nurse Practitioner
DX: R55 Syncope and collapse (principal)
CPT/HCPCS: 36415; 80048; 84484; 85025; 93005; 96361; 96374; 96375; 99285; J1200; J2405